=== PATIENT | female | born 1960 | race Caucasian/White ===

== ENCOUNTER → 2023-09-25 13:01 | Outpatient (REF) | payer BC, SELFPAY ==
[2023-09-25 14:11] LABS: % Basophils 0.6 % (0-2); % Eosinophils 1.7 % (0-6); % Immature Granulocytes 0.2 % (0-0.5); % Lymphocytes 30.6 % (20.5-51.1); % Monocytes 9.4 % (1.7-9.3); % Neutrophils 57.5 % (42.2-75.2); Absolute Eosinophils 0.1 10^3/uL (0-0.7); Absolute Lymphocytes 1.5 10^3/uL (1.2-3.4); Absolute Monocytes 0.5 10^3/uL (0.1-0.6); Absolute Neutrophils 2.8 10^3/uL (1.4-6.5); Hematocrit 38.1 % (37.0-47.0); Hemoglobin 13.3 g/dL (12.0-16.0); Mean Corp Hgb Conc. 34.9 g/dL (33.0-37.0); Mean Corpuscular Hgb 29.8 pg (27.0-31.0); Mean Corpuscular Volume 85.4 fL (81.0-99.0); Mean Platelet Volume 10.6 fL (7.4-10.4); Nucleated Red Blood Cells % 0 %; Platelet Count 236 10^3/uL (130-400); Red Blood Cell Count 4.46 10^6/uL (4.20-5.40); Red Cell Dist. Width 11.9 % (11.5-14.5); White Blood Cell Count 4.8 10^3/uL (4.8-10.8)
[2023-09-25 14:36] LABS: ALT (SGPT) 38 U/L (0-35); AST (SGOT) 32 U/L (14-36); Albumin 4.3 g/dl (3.5-5.0); Alkaline Phosphatase 45 U/L (38-126); Blood Urea Nitrogen 11 mg/dl (7-17); Calcium 9.7 mg/dl (8.4-10.2); Carbon Dioxide 30 mmol/L (22-30); Chloride 102 mmol/L (98-107); Glucose 99 mg/dl (70-99); Lipase 108 U/L (23-300); Potassium 4.8 mmol/L (3.5-5.1); Sodium 138 mmol/L (135-145); Total Bilirubin 0.7 mg/dl (0.2-1.3); Total Protein 6.7 g/dl (6.3-8.2); eGFR > 60.00
== END ==
LOC: REG 13:01
PROVIDERS: ATTENDING PHYSICIAN Internal Medicine
DX: K92.1 Melena (principal); R10.9 Unspecified abdominal pain
CPT/HCPCS: 36415; 80053; 83690; 85025

== ENCOUNTER → 2023-09-26 08:56 | Outpatient (REF) | payer BC, SELFPAY | LOC: RAD 08:56 | PROVIDERS: ATTENDING PHYSICIAN Internal Medicine | DX: R10.9 Unspecified abdominal pain (principal); R19.5 Other fecal abnormalities | CPT/HCPCS: 74177; Q9967 ==

== ENCOUNTER → 2023-09-28 | Outpatient (REF) | payer BC, SELFPAY | LOC: DHSLP | PROVIDERS: ATTENDING PHYSICIAN Internal Medicine | DX: G47.33 Obstructive sleep apnea (adult) (pediatric) (principal) | CPT/HCPCS: 95800 ==

== ENCOUNTER → 2023-11-15 10:36 | Outpatient (REF) | payer BC, SELFPAY | LOC: HWRAD 10:36 | PROVIDERS: ATTENDING PHYSICIAN Internal Medicine | DX: N32.89 Other specified disorders of bladder (principal) | CPT/HCPCS: 76770 ==

== ENCOUNTER → 2023-11-17 10:44 | Outpatient (REF) | payer BC, SELFPAY | LOC: RCS 10:44 | PROVIDERS: ATTENDING PHYSICIAN Internal Medicine Cardiovascular Disease; FAMILY PHYSICIAN Internal Medicine | DX: R07.89 Other chest pain (principal); E66.9 Obesity, unspecified; E78.9 Disorder of lipoprotein metabolism, unspecified | CPT/HCPCS: 93017 ==

== ENCOUNTER → 2023-12-07 06:42 | Day surgery (SDC) | payer BC, SELFPAY | LOC: GI 06:42 | PROVIDERS: ATTENDING PHYSICIAN Specialist; FAMILY PHYSICIAN Internal Medicine | DX: K63.5 Polyp of colon (principal); K31.7 Polyp of stomach and duodenum; R19.7 Diarrhea, unspecified; R11.2 Nausea with vomiting, unspecified; R12 Heartburn | CPT/HCPCS: 45380; 43239; 88305; 88342 ==